=== PATIENT | female | born 1940 | race Hispanic/Latino ===

== ENCOUNTER 2022-09-21 10:27 | Outpatient (CLI) | payer MEDICARE, BC | END 2022-09-21 10:28 | disposition home or self-care (01) | LOC: CSHRAD 10:27 | PROVIDERS: ATTEND Family Medicine | DX: T17.998A Other foreign object in respiratory tract, part unspecified causing other injury, initial encounter (principal); K21.9 Gastro-esophageal reflux disease without esophagitis; T18.9XXA Foreign body of alimentary tract, part unspecified, initial encounter | CPT/HCPCS: 74230 ==

== ENCOUNTER 2023-03-25 11:26 | Outpatient (CLI) | payer MEDICARE, BC | END 2023-03-25 11:27 | disposition home or self-care (01) | LOC: CSHCT 11:26 | PROVIDERS: ATTEND Family Medicine | DX: R42 Dizziness and giddiness (principal); S09.90XS Unspecified injury of head, sequela | CPT/HCPCS: 70450 ==